=== PATIENT | female | born 1965 | race Caucasian/White ===

== ENCOUNTER → 2016-06-03 | Outpatient (CLI) | payer OTHER ==
[~2016-06-03] MED LIST: ATV/1 SL; LEVO1TAB34 PO; ORTHO BIOTIC PO; ZOLP5TAB PO; amoxicillin PO; oxycodone hcl PO
[2016-06-08 12:20] LABS: 18KDIGG BAND REACTIVE (NONREACTIVE); 23KDIGG BAND NONREACTIVE (NONREACTIVE); 23KDIGM BAND NONREACTIVE (NONREACTIVE); 28KDIGG BAND NONREACTIVE (NONREACTIVE); 30KDIGG BAND NONREACTIVE (NONREACTIVE); 39KDIGG BAND NONREACTIVE (NONREACTIVE); 39KDIGM BAND NONREACTIVE (NONREACTIVE); 41KDIGG BAND REACTIVE (NONREACTIVE); 41KDIGM BAND NONREACTIVE (NONREACTIVE); 45KDIGG BAND NONREACTIVE (NONREACTIVE); 58KDIGG BAND NONREACTIVE (NONREACTIVE); 66KDIGG BAND REACTIVE (NONREACTIVE); 93KDIGG BAND NONREACTIVE (NONREACTIVE)
[2016-06-10 10:09] LABS: ANAPLASMA PHAGOCYTOPHIL IGM <1:20 (<1:20); ANAPLASMA PHAGOCYTOPHIL INTERP Past Infection; EHRLICHIA CHAFF IGM AB <1:20 (<1:20); EHRLICHIA CHAFF INTERPRET Past Infection; R. TYPHI IgG AB Not Detected (Not Detected); R. TYPHI IgM AB Not Detected (Not Detected); RMSF IgM AB Not Detected (Not Detected)
== END | disposition home or self-care (01) ==
LOC: C.LAB1850 14:07
PROVIDERS: ATTEND Internal Medicine Infectious Disease
DX: A69.20 Lyme disease, unspecified (principal)